=== PATIENT | female | born 1990 ===

== ENCOUNTER → 2017-03-30 | Outpatient (REF) | LOC: WSOH 09:00 | DX: Z02.89 Encounter for other administrative examinations (principal) ==

== ENCOUNTER → 2017-06-01 | Outpatient (REF) | LOC: WSOH 17:15 | DX: Z02.89 Encounter for other administrative examinations (principal) ==

== ENCOUNTER → 2018-06-21 | Outpatient (REF) | LOC: WSOH 14:03 | DX: F90.0 Attention-deficit hyperactivity disorder, predominantly inattentive type (principal) ==